=== PATIENT | female | born 1990 ===

== ENCOUNTER 2022-12-19 04:54 | Emergency (ER) | payer OTHER ==
[~2022-12-19] VITALS: Ht 160 cm; Wt 54.0 kg
[~2022-12-19 04:54] MED LIST: DOXY100 PO; METR500 PO
[2022-12-19 07:47] VITALS: BP 117/86
== END 2022-12-19 07:48 | disposition home or self-care (01) ==
LOC: ER 04:54
DX: T40.411A Poisoning by fentanyl or fentanyl analogs, accidental (unintentional), initial encounter (principal); R40.4 Transient alteration of awareness; Z79.899 Other long term (current) drug therapy
CPT/HCPCS: 99284